=== PATIENT | male | born 1985 | race African-American/Black ===

== ENCOUNTER 2020-01-27 10:21 | Emergency (ER) | payer MEDICAID ==
[~2020-01-27] VITALS: Ht 180.3 cm; Wt 70.3 kg
[2020-01-27 10:35] VITALS: BP_SYST 116
[2020-01-27] MEDS ORDERED: cefTRIAXone 250 MG in LIDOCAINE 1%, 20 ML MDV 0.9 ML IM ONE (11:15)
[2020-01-27] MEDS ORDERED: AZITHROMYCIN 250 MG TABLET PO ONE (11:15)
[2020-01-27 11:45] VITALS: BP_SYST 109
[2020-01-29 02:06] LABS: CHLAMYDIA TRACHOMATIS NAA Negative (Negative)
== END 2020-01-27 11:45 | disposition home or self-care (01) ==
LOC: SED 10:21
DX: A64 Unspecified sexually transmitted disease (principal); F12.90 Cannabis use, unspecified, uncomplicated
CPT/HCPCS: 87491; 87591; 96372; 99283; J0696; J2001; Q0144